=== PATIENT | male | born 1970 | race Caucasian/White ===

== ENCOUNTER 2017-01-12 23:29 | Emergency (ER) | payer OTHER ==
[~2017-01-12] VITALS: Ht 188 cm; Wt 87.0 kg
[2017-01-12 23:44] VITALS: BP 121/71; PULSE 106; RESP 18; TEMP 98.7; O2SAT 93
[2017-01-12] MEDS ORDERED: PAXI30TA7 PO (23:55)
[2017-01-12] MEDS ORDERED: LISI-515 PO (23:55)
--- NOTE | 2017-01-13 00:18 | PD ---
HPI Chief Complaint: Alcohol/Drug Intoxication Time Seen by Provider: 00:17 Travel History International Travel<30 days: No Contact w/Intl Traveler<30days: No Traveled to known affect area: No History of Present Illness HPI 46 year Old male arrives by EMS. He was drinking alcohol tonight. He drinks alcohol every single night. He was found asleep beside a [facility] and was therefore brought to the ER for evaluation. Here he has no complaint. He has no suicidal or homicidal ideation. Blood glucose upon arrival 259. Patient has a known history of diabetes. PFSH Past Medical History Depression: Yes Diabetes: Yes Patient Takes Glucophage: No Schizophrenia: Yes Tetanus Vaccination: Unknown Influenza Vaccination: No Social History Alcohol Use: Yes (ABUSE) Tobacco Use: Yes Substance Use: No Allergies-Medications (Allergen,Severity, Reaction): Coded Allergies: No Known Allergies (Unverified , 01/12/17) Reported Meds & Prescriptions Reported Meds & Active Scripts Active Reported Lisinopril 20 Mg Tab 20 Mg PO DAILY Paxil (Paroxetine HCl) 30 Mg Tab 40 Mg PO DAILY Review of Systems ROS Limitations: Intoxication Physical Exam Narrative GENERAL: 46 M, NAD, speaking full sentences SKIN: Warm and dry. HEAD: Atraumatic. Normocephalic. EYES: Pupils equal and round. No scleral icterus. No injection or drainage. ENT: No nasal bleeding or discharge. Mucous membranes pink and moist. NECK: Trachea midline. No JVD. CARDIOVASCULAR: Regular rate and rhythm. RESPIRATORY: No accessory muscle use. Clear to auscultation. Breath sounds equal bilaterally. GASTROINTESTINAL: Abdomen soft, non-tender, nondistended. Hepatic and splenic margins not palpable. MUSCULOSKELETAL: Extremities without clubbing, cyanosis, or edema. No obvious deformities. NEUROLOGICAL: Awake and alert. No obvious cranial nerve deficits. Motor grossly within normal limits. Five out of 5 muscle strength in the arms and legs. Normal speech. PSYCHIATRIC: EtOH on breath. No SI/HI. Data Data Last Documented VS Vital Signs Date Time Temp Pulse Resp B/P Pulse Ox O2 Delivery O2 Flow Rate FiO2 01/12/17 23:47 Room Air 01/12/17 23:44 98.7 106 18 121/71 93 VS reviewed [facility] Medical Decision Making Medical Screen Exam Complete: Yes Emergency Medical Condition: Yes Medical Record Reviewed: Yes Differential Diagnosis Alcohol intoxication, alcoholism, hyperglycemia Narrative Course The patient has been verbally abusive towards the staff. Although intoxicated he has a steady gait and is AOx3. Keeping him here against his will while he is able bodied and sufficiently clinically sober for discharge is considered unnecessary and he'll therefore be discharged. Diagnosis Primary Impression: Alcohol intoxication Qualified Code: F10.920 - Alcoholic intoxication without complication Additional Impression: Hyperglycemia Additional Instructions: You have a choice when it comes to health care, and we are glad that you chose [facility]. Hopefully, we have met your expectations on today's visit. You are welcome to return to [facility] at any time, as we are committed to meeting the health care needs of our community. Med/Other Pt SpecificInfo: No Change to Meds Disposition: 01 DISCHARGE HOME Condition: Stable Jack Villasenor MD Jan 13, 2017 00:18
== END 2017-01-13 01:16 | disposition home or self-care (01) ==
LOC: NEPD 23:29
DX: F10.120 Alcohol abuse with intoxication, uncomplicated (principal); E11.65 Type 2 diabetes mellitus with hyperglycemia
CPT/HCPCS: 99283

== ENCOUNTER 2017-01-24 12:27 | Inpatient (IN) | payer OTHER ==
[~2017-01-24] VITALS: Ht 188 cm; Wt 79.0 kg
[~2017-01-24 12:27] MED LIST: LISI-515 PO; PAXI30TA7 PO
[2017-01-24 12:33] VITALS: BP 147/76; PULSE 84; RESP 16; TEMP 98.2; O2SAT 98
--- NOTE | 2017-01-24 12:39 | PD ---
Physical Exam Date Seen by Provider: Jan 24, 2017 Time Seen by Provider: 12:36 Narrative Pt is a 46 year old male presenting via [facility] for evaluation of abdominal pain. Pt states he has a history of pancreatitis. He believes he is having a "bout of it now" pt is requesting to get out of pain fast. He reports drinking alcohol today and he states "that's what does it". Pt admits to drinking a few beers today. Pain appears more epigastric, pt pointing to epigastric area. Pt reports being a diabetic and states he lost his insulin and syringes. VSS, awaiting bed placement. Data Data Last Documented VS Vital Signs Date Time Temp Pulse Resp B/P (MAP) Pulse Ox O2 Delivery O2 Flow Rate FiO2 01/24/17 12:33 98.2 84 16 147/76 (99) 98 MDM Supervised Visit with KAJAL: Chanel Savage Jan 24, 2017 12:38
[2017-01-24] MEDS ORDERED: SODIUM CHLOR 0.9% 1000 ML INJ 1,000 ML IV SCH ×2 (12:56→15:05)
[2017-01-24] MEDS ORDERED: PROCHLORPERAZINE INJ 10 MG/2 ML VIAL IV PUSH ONE (13:00)
[2017-01-24] MEDS ORDERED: PANTOPRAZOLE SODIUM 40 MG VIAL IVP ONE (13:00)
[2017-01-24] MEDS ORDERED: HYDROmorphone HCL PF 1 MG/ML VIAL IVS ONE ×2 (13:00→14:45)
[2017-01-24] MEDS ORDERED: SODIUM CHLORIDE 0.9% FLUSH 10 ML FLUSH IV FLUSH PRN ×4 (13:00→15:15)
--- NOTE | 2017-01-24 13:31 | PD ---
HPI Chief Complaint: Abdominal Pain Time Seen by Provider: 12:42 Travel History International Travel<30 days: No Contact w/Intl Traveler<30days: No Traveled to known affect area: No History of Present Illness HPI This is a 46-year-old male with a history of alcohol abuse, pancreatitis, presents today with platelets of severe epigastric pain with associated nausea vomiting. The patient states he had 2 beers this morning. He states shortly thereafter exacerbated his epigastric pain. He reports the pain is severe. He reports it as a 9-10 out of 10. He denies any blood per emesis. He denies any blood per rectum. He was unable to tell me last time he had a episode of pancreatitis. [facility] Past Medical History Depression: Yes Diabetes: Yes Schizophrenia: Yes Social History Alcohol Use: Yes (ABUSE) Tobacco Use: Yes Substance Use: No Allergies-Medications (Allergen,Severity, Reaction): Coded Allergies: No Known Allergies (Unverified , 01/24/17) Reported Meds & Prescriptions Reported Meds & Active Scripts Active Reported Paxil (Paroxetine HCl) 30 Mg Tab 40 Mg PO DAILY Review of Systems Except as stated in HPI: all other systems reviewed are Neg General / Constitutional: No: Fever, Chills HENT: No: Headaches, Lightheadedness Cardiovascular: No: Chest Pain or Discomfort, Palpitations Respiratory: No: Cough, Shortness of Breath Gastrointestinal: Positive: Nausea, Vomiting, Abdominal Pain (epigastric), No: Hematemesis, Hematochezia Neurologic: No: Weakness, Dizziness Psychiatric: No: Anxiety, Disorder of Thought Physical Exam Narrative GENERAL: Well-nourished, well-developed patient, in no acute respiratory distress. SKIN: Focused skin assessment warm/dry. HEAD: Normocephalic last atraumatic. EYES: No scleral icterus. No injection or drainage. NECK: Supple, trachea midline. No JVD or lymphadenopathy. CARDIOVASCULAR: Regular rate and rhythm without murmurs, gallops, or rubs. RESPIRATORY: Breath sounds equal bilaterally. No accessory muscle use. GASTROINTESTINAL: Abdomen soft, nondistended. He has subjective epigastric tenderness to palpation. No rebound but voluntary guarding. MUSCULOSKELETAL: No cyanosis, or edema. NEUROLOGICAL: Awake and alert. Cranial nerves II through XII intact. Motor grossly within normal limits. Five out of 5 muscle strength in all muscle groups. Normal speech. Data Data Last Documented VS Vital Signs Date Time Temp Pulse Resp B/P (MAP) Pulse Ox O2 Delivery O2 Flow Rate FiO2 01/24/17 12:33 98.2 84 16 147/76 (99) 98 Orders Orders Complete Blood Count With Diff (01/24/17 12:56) Comprehensive Metabolic Panel (01/24/17 12:56) Lipase (01/24/17 12:56) Urinalysis - C+S If Indicated (01/24/17 12:56) Iv Access Insert/Monitor (01/24/17 12:56) Ecg Monitoring (01/24/17 12:56) Oximetry (01/24/17 12:56) Pantoprazole Inj (Protonix Inj) (01/24/17 13:00) Sodium Chlor 0.9% 1000 Ml Inj (Ns 1000 M (01/24/17 12:56) Sodium Chloride 0.9% Flush (Ns Flush) (01/24/17 13:00) Hydromorphone Pf Inj (Dilaudid Pf Inj) (01/24/17 13:00) Prochlorperazine Inj (Compazine Inj) (01/24/17 13:00) Hydromorphone Pf Inj (Dilaudid Pf Inj) (01/24/17 14:45) Sodium Chlor 0.9% 1000 Ml Inj (Ns 1000 M (01/24/17 14:45) Comprehensive Metabolic Panel (01/25/17 06:00) Free Thyroxine (T4) (01/25/17 06:00) Hemoglobin (Hgb) A1c (01/25/17 06:00) Magnesium (Mg) (01/25/17 06:00) Phosphorus (Po4) (01/25/17 06:00) Thyroid Stimulating Hormone (01/25/17 06:00) Complete Blood Count With Diff (01/25/17 06:00) Bedside Glucose MAGGIE.AC&HS&03 (01/24/17 15:04) Blood Glucose Goal (Criteria) (01/24/17 15:04) Hypoglycemia 70 Mg/Dl Or < (01/24/17 15:04) Notify Dr: Other (01/24/17 15:04) Dextrose 50% In Teri (Vial) Inj (D50w (Vi (01/24/17 15:15) Glucagon Inj (Glucagon Inj) (01/24/17 15:15) Consult Rn Cardiac Cath (01/24/17 ) Case Management Consult (01/24/17 ) Insulin Aspart Supplemtl Scale (Novolog (01/24/17 16:00) Admit To Inpatient (01/24/17 ) Code Status (01/24/17 15:05) Vital Signs (Adult) Q4H (01/24/17 15:05) Activity Oob Ad Lindsay (01/24/17 15:05) Intake + Output MAGGIE.QSHIFT (01/24/17 15:05) Diet Npo (01/24/17 Dinner) Sodium Chlor 0.9% 1000 Ml Inj (Ns 1000 M (01/24/17 15:05) Sodium Chloride 0.9% Flush (Ns Flush) (01/24/17 15:15) Sodium Chloride 0.9% Flush (Ns Flush) (01/24/17 21:00) Ketorolac Inj (Toradol Inj) (01/24/17 15:15) Morphine Inj (Morphine Inj) (01/24/17 15:15) Ondansetron Inj (Zofran Inj) (01/24/17 15:15) Promethazine Inj (Phenergan Inj) (01/24/17 15:15) Lipase (01/25/17 06:00) Calcium, Ionized (01/24/17 15:05) Triglycerides (01/24/17 15:05) C-Reactive Protein (Crp) (01/24/17 15:05) Hepatic Functional Panel (01/24/17 15:05) Resp Oxygen Jj C Titrat 1-4 L (01/24/17 ) Heparin Inj (Heparin Inj) (01/24/17 15:15) Scd Bilateral/Knee High MAGGIE.BID (01/24/17 15:05) Nestor Bilateral/Knee High MAGGIE.QSHIFT (01/24/17 15:15) Inpatient Certification (01/24/17 ) Amylase (01/25/17 06:00) Lipid Profile (01/24/17 15:05) Insulin Human Nph/R 70/30 Inj (Novolin 7 (01/25/17 09:00) Insulin Human Nph/R 70/30 Inj (Novolin 7 (01/24/17 21:00) (Nf) Paroxetine (Paxil) (01/25/17 09:00) Insulin Detemir Inj (Levemir Inj) (01/24/17 21:00) Admit Order (Ed Use Only) (01/24/17 15:09) Vital Signs (Adult) Q4H (01/24/17 15:10) Surtass Analyst / Telemetry .CONTINUOUS (01/24/17 15:10) Sodium Chloride 0.9% Flush (Ns Flush) (01/24/17 15:15) Sodium Chloride 0.9% Flush (Ns Flush) (01/24/17 21:00) Ondansetron Inj (Zofran Inj) (01/24/17 15:15) Prochlorperazine Supp (Compazine Supp) (01/24/17 15:15) Resp Oxygen Jj C Titrat 1-4 L (01/24/17 ) Pt Request For Service (01/24/17 15:10) Ot Request For Service (01/24/17 15:10) Acetaminophen (Tylenol) (01/24/17 15:15) Oxycodone-Acetamin 5-325 Mg (Percocet (01/24/17 15:15) Oxycodone-Acetamin 10-325 Mg (Percocet 1 (01/24/17 15:15) Naloxone Inj (Narcan Inj) (01/24/17 15:15) Docusate Sodium-Senna (Sachi-Colace) (01/24/17 21:00) Magnesium Hydroxide Liq (Milk Of Magnesi (01/24/17 15:15) Sennosides (Senokot) (01/24/17 15:15) Bisacodyl Supp (Dulcolax Supp) (01/24/17 15:15) Lactulose Liq (Lactulose Liq) (01/24/17 15:15) Flumazenil Inj (Romazicon Inj) (01/24/17 15:15) Lorazepam (Ativan) (01/24/17 15:15) Lorazepam Inj (Ativan Inj) (01/24/17 15:15) Lorazepam (Ativan) (01/24/17 15:15) Lorazepam Inj (Ativan Inj) (01/24/17 15:15) Lorazepam Inj (Ativan Inj) (01/24/17 15:15) Lorazepam Inj (Ativan Inj) (01/24/17 15:15) Neuro Checks Q4H (01/24/17 15:10) Alcohol Withdrawal Asmt-Ciwa Q4HX18 (01/24/17 15:10) ^ Seizure Precautions (01/24/17 15:10) Sodium Chloride 0.9% Flush (Ns Flush) (01/24/17 15:15) Sodium Chloride 0.9% Flush (Ns Flush) (01/24/17 21:00) Folic Acid (Folate) (01/25/17 09:00) Thiamine (Vit B1) (Vitamin B1) (01/25/17 09:00) Multivitamins-Minerals Therap (Theragran (01/25/17 09:00) Pantoprazole (Protonix) (01/25/17 09:00) Clonidine (Catapres) (01/24/17 15:15) Magnesium (Mg) (01/24/17 15:10) Phosphorus (Po4) (01/24/17 15:10) Alcohol (Ethanol) (01/24/17 15:10) Consult Cm-Etoh Abuse Dc Plan (01/24/17 ) Labs Laboratory Tests Test 01/24/17 13:10 01/24/17 13:30 White Blood Count 10.8 TH/MM3 Red Blood Count 4.87 MIL/MM3 Hemoglobin 16.3 GM/DL Hematocrit 47.2 % Mean Corpuscular Volume 96.8 FL Mean Corpuscular Hemoglobin 33.5 PG Mean Corpuscular Hemoglobin Concent 34.6 % Red Cell Distribution Width 14.5 % Platelet Count 244 TH/MM3 Mean Platelet Volume 8.5 FL Neutrophils (%) (Auto) 71.1 % Lymphocytes (%) (Auto) 22.3 % Monocytes (%) (Auto) 4.9 % Eosinophils (%) (Auto) 1.0 % Basophils (%) (Auto) 0.7 % Neutrophils # (Auto) 7.6 TH/MM3 Lymphocytes # (Auto) 2.4 TH/MM3 Monocytes # (Auto) 0.5 TH/MM3 Eosinophils # (Auto) 0.1 TH/MM3 Basophils # (Auto) 0.1 TH/MM3 CBC Comment DIFF FINAL Differential Comment Blood Urea Nitrogen 11 MG/DL Creatinine 0.82 MG/DL Random Glucose 315 MG/DL Total Protein 7.6 GM/DL Albumin 4.1 GM/DL Calcium Level 9.1 MG/DL Alkaline Phosphatase 105 U/L Aspartate Amino Transf (AST/SGOT) 66 U/L Alanine Aminotransferase (ALT/SGPT) 98 U/L Total Bilirubin 0.5 MG/DL Sodium Level 135 MEQ/L Potassium Level 4.0 MEQ/L Chloride Level 98 MEQ/L Carbon Dioxide Level 18.8 MEQ/L Anion Gap 18 MEQ/L Lipase 2847 U/L Urine Color LIGHT-YELLOW Urine Turbidity CLEAR Urine pH 6.0 Urine Specific [place] 1.030 Urine Protein NEG mg/dL Urine Glucose (UA) 1000 mg/dL Urine Ketones 40 mg/dL Urine Occult Blood NEG Urine Nitrite NEG Urine Bilirubin NEG Urine Urobilinogen LESS THAN 2.0 MG/DL Urine Leukocyte Esterase NEG Urine WBC 1 /hpf Microscopic Urinalysis Comment CULT NOT INDICATED MDM Medical Decision Making Medical Screen Exam Complete: Yes Emergency Medical Condition: Yes Differential Diagnosis Recurrent pancreatitis versus cholecystitis versus peptic ulcer disease Narrative Course 46-year-old gentleman with history of alcohol abuse, diabetes mellitus, presents today with complaint of epigastric pain with associated nausea vomiting. The patient has had previous admission for alcohol intoxication. He reports she's had previous pancreatitis in the past was well. The patient's blood sugar is over 300. His lipase is 2800. He's been given I V fluids. Patient is complaining of thirst. Case was discussed with Dr. Matthew, [facility], who is agreeable to the admission. Diagnosis Primary Impression: Acute pancreatitis Additional Impressions: Hyperglycemia Insulin dependent diabetes mellitus Admitting Information Admitting Physician Requests: Admit Rikki Dunaway MD Jan 24, 2017 13:31
[2017-01-24] MEDS ORDERED: NOVO7030P2 SQ ×2 (13:32)
[2017-01-24 13:33] LABS: AUTOMATED NEUTROPHIL # 7.6 TH/MM3 (1.8-7.7); BASOPHIL # 0.1 TH/MM3 (0-0.2); BASOPHIL % 0.7 % (0.0-2.0); EOSINOPHIL # 0.1 TH/MM3 (0-0.4); HEMATOCRIT 47.2 % (39.0-51.0); HEMO FLAGS DIFF FINAL; LYMPH % 22.3 % (9.0-44.0); LYMPHOCYTE # 2.4 TH/MM3 (1.0-4.8); MEAN CELL VOLUME 96.8 FL (80.0-100.0); MEAN CORPUSCULAR HEMOGLOBIN 33.5 PG (27.0-34.0); MEAN CORPUSCULAR HGB CONC 34.6 % (32.0-36.0); MONO % 4.9 % (0.0-8.0); NEUT % 71.1 % (16.0-70.0); PLATELET COUNT 244 TH/MM3 (150-450); RED BLOOD COUNT 4.87 MIL/MM3 (4.50-5.90); RED CELL DISTRIBUTION WIDTH 14.5 % (11.6-17.2); WHITE BLOOD COUNT 10.8 TH/MM3 (4.0-11.0)
[2017-01-24 13:48] LABS: ALT (GPT) 98 U/L (12-78); ANION GAP 18 MEQ/L (5-15); BICARBONATE 18.8 MEQ/L (21.0-32.0); BLOOD UREA NITROGEN 11 MG/DL (7-18); CHLORIDE 98 MEQ/L (98-107); SODIUM (NA) 135 MEQ/L (136-145)
[2017-01-24 13:55] LABS: ALKALINE PHOSPHATASE 105 U/L (45-117); AST (GOT) 66 U/L (15-37); TOTAL BILIRUBIN ADULT 0.5 MG/DL (0.2-1.0)
[2017-01-24 13:59] LABS: BLOOD, URINE NEG (NEG); GLUCOSE,URINE 1000 mg/dL (NEG); KETONE, URINE 40 mg/dL (NEG); NITRITE,URINE NEG (NEG); URINE COLOR LIGHT-YELLOW (YELLW/STRAW)
[2017-01-24 14:01] LABS: COMMENT (UR) CULT NOT INDICATED; CULTURE IF INDICATED CULT NOT INDICATED
[2017-01-24] MEDS ORDERED: SODIUM CHLOR 0.9% 1000 ML INJ 1,000 ML IV ONE (14:45)
[2017-01-24] MEDS ORDERED: SENNOSIDES 8.6 MG TAB PO PRN (15:15)
[2017-01-24] MEDS ORDERED: PROCHLORPERAZINE 25 MG SUPP RECTAL PRN (15:15)
[2017-01-24] MEDS ORDERED: DEXTROSE 50% IN WATER 50 ML VIAL(D50) IV PRN (15:15)
[2017-01-24] MEDS ORDERED: LACTULOSE SYRUP 20 GM/30 ML CUP PO PRN (15:15)
[2017-01-24] MEDS ORDERED: MAGNESIUM HYDROXIDE SUSP 30 ML CUP PO PRN (15:15)
[2017-01-24] MEDS ORDERED: BISACODYL 10 MG SUPP RECTAL PRN (15:15)
[2017-01-24] MEDS ORDERED: MORPHINE SULFATE 8 MG/ML INJ IV PUSH PRN (15:15)
[2017-01-24] MEDS ORDERED: oxyCODONE/ACETAMINOPHEN 10 MG/325 MG TAB PO PRN (15:15)
[2017-01-24] MEDS ORDERED: oxyCODONE/ACETAMINOPHEN 5 MG/325 MG TAB PO PRN (15:15)
[2017-01-24] MEDS ORDERED: ONDANSETRON HCL 4 MG/2 ML VIAL IVP PRN (15:15)
[2017-01-24] MEDS ORDERED: LORazepam 1 MG TAB PO PRN (15:15)
[2017-01-24] MEDS ORDERED: GLUCAGON 1 MG/ML VIAL OTHER PRN (15:15)
[2017-01-24] MEDS ORDERED: LORazepam 2 MG TAB PO PRN (15:15)
[2017-01-24] MEDS ORDERED: PROMETHAZINE INJ 25 MG/ML VIAL IM PRN (15:15)
[2017-01-24] MEDS ORDERED: KETOROLAC TROMETHAMINE 30 MG/ML (IVP) VIAL IVP PRN (15:15)
[2017-01-24] MEDS ORDERED: LORazepam 2 MG/ML VIAL IV PUSH PRN ×4 (15:15)
[2017-01-24] MEDS ORDERED: NALOXONE HCL 0.4 MG/ML AMP IV PRN (15:15)
[2017-01-24] MEDS ORDERED: FLUMAZENIL 0.5 MG/5 ML VIAL IV PUSH PRN (15:15)
[2017-01-24] MEDS ORDERED: ACETAMINOPHEN 325 MG TAB PO PRN (15:15)
[2017-01-24] MEDS ORDERED: ONDANSETRON HCL 4 MG/2 ML VIAL IV PRN (15:15)
[2017-01-24] MEDS ORDERED: cloNIDine HCL 0.1 MG TAB PO PRN (15:15)
--- NOTE | 2017-01-24 15:26 | HHI.HP ---
[facility] Service [facility] Primary Care Physician No Primary Care Physician Admission Diagnosis acute pancreatitis, hypergycemia, insulin dependent diabetes mellitu Diagnoses: (1) Hyperglycemia Diagnosis: Principal (2) Insulin dependent diabetes mellitus Diagnosis: Secondary (3) Acute pancreatitis Diagnosis: Principal (4) Alcohol intoxication Diagnosis: Secondary (5) ETOH abuse Diagnosis: Principal (6) Noncompliance Diagnosis: Principal Chief Complaint: ABDOMINAL PAIN Travel History International Travel<30 Days: No Contact w/Intl Traveler <30 Da: No Traveled to Known Affected Are: No History of Present Illness This is a 46-year-old male with a history of alcohol abuse, pancreatitis, presents today with complaint of severe epigastric pain with associated nausea and vomiting. The patient states he had 2 beers this morning. He states shortly thereafter exacerbated his epigastric pain. He reports the pain is severe. He reports it as a 9-10 out of 10. He denies any blood per emesis. He denies any blood per rectum. He was unable to tell me last time he had a episode of pancreatitis. Patient states he drinks too much alcohol have told him that he should never do that again! Review of Systems Constitutional: COMPLAINS OF: Change in appetite, DENIES: Fatigue, Fever, Weight gain, Weight loss, Chills, Dizziness Endocrine: DENIES: Heat/cold intolerance, Polydipsia, Polyuria, Polyphagia Eyes: DENIES: Blurred vision, Diplopia, Eye inflammation, Eye pain Ears, nose, mouth, throat: DENIES: Tinnitus, Hearing loss, Vertigo, Nasal discharge Respiratory: DENIES: Apneas, Cough, Snoring, Wheezing, Hemoptysis Cardiovascular: DENIES: Chest pain, Palpitations, Syncope, Dyspnea on Exertion Gastrointestinal: COMPLAINS OF: Abdominal pain, Diarrhea, Nausea, Anorexia, DENIES: Bloody stools, Constipation Genitourinary: DENIES: Sexual dysfunction, Urinary frequency Musculoskeletal: DENIES: Joint pain, Muscle aches, Stiffness Integumentary: DENIES: Abnormal pigmentation, Nail changes Hematologic/lymphatic: DENIES: Bruising, Lymphadenopathy Immunologic/allergic: DENIES: Eczema, Urticaria Neurologic: DENIES: Abnormal gait, Headache, Localized weakness, Paresthesias, Seizures, Tremor, Poor Balance Psychiatric: COMPLAINS OF: Anxiety, Depression, DENIES: Confusion, Mood changes , Hallucinations, Agitation, Homicidal Ideation Past Family Social History Past Medical History Depression Diabetes Schizophrenia Noncompliance Past Surgical History Denies any surgical history Reported Medications Reported Meds & Active Scripts Active Reported Paxil (Paroxetine HCl) 30 Mg Tab 40 Mg PO DAILY Allergies: Coded Allergies: No Known Allergies (Unverified , 01/24/17) Active Ordered Medications Current Medications Pantoprazole Sodium (Protonix Inj) 40 mg ONCE ONCE IVP Last administered on 13:25; Start 01/24/17 at 13:00; Stop 01/24/17 at 13:01; Status DC Sodium Chloride 1,000 ml @ 1,000 mls/hr Q1H IV Last administered on 01/24/17 13:24; Start 01/24/17 at 12:56; Stop 01/24/17 at 13:55; Status DC Sodium Chloride (NS Flush) 2 ml UNSCH PRN IV FLUSH FLUSH AFTER USING IV ACCESS Last administered on 01/24/17 13:26; Start 01/24/17 at 13:00 Hydromorphone HCl (Dilaudid Pf Inj) 1 mg ONCE ONCE IVS Last administered on 13:26; Start 01/24/17 at 13:00; Stop 01/24/17 at 13:01; Status DC Prochlorperazine Edisylate (Compazine Inj) 10 mg ONCE ONCE IV PUSH Last administered on 01/24/17 13:25; Start 01/24/17 at 13:00; Stop 01/24/17 at 13:01 ; Status DC Hydromorphone HCl (Dilaudid Pf Inj) 1 mg ONCE ONCE IVS ; Start 01/24/17 at 14: 45; Stop 01/24/17 at 14:46; Status DC Sodium Chloride 1,000 ml @ 999 mls/hr BOLUS ONCE IV ; Start 01/24/17 at 14:45 ; Stop 01/24/17 at 15:45 Dextrose (D50w (Vial) Inj) 50 ml UNSCH PRN IV HYPOGLYCEMIA-SEE COMMENTS; Start 01/24/17 at 15:15; Status UNV Glucagon (Glucagon Inj) 1 mg UNSCH PRN OTHER HYPOGLYCEMIA-SEE COMMENTS; Start 01/24/17 at 15:15; Status UNV Insulin Aspart (NovoLOG SUPPLEMENTAL SCALE) 1 ACHS SLIDING SCALE SQ ; Start at 16:00; Status UNV Sodium Chloride 1,000 ml @ 125 mls/hr Q8H IV ; Start 01/24/17 at 15:05; Status UNV Sodium Chloride (NS Flush) 2 ml UNSCH PRN IV FLUSH FLUSH AFTER USING IV ACCESS ; Start 01/24/17 at 15:15; Status UNV Sodium Chloride (NS Flush) 2 ml BID IV FLUSH ; Start 01/24/17 at 21:00; Status UNV Ketorolac Tromethamine (Toradol Inj) 30 mg Q6H PRN IVP PAIN SCALE 1 TO 10; Start 01/24/17 at 15:15; Status UNV Morphine Sulfate (Morphine Inj) 5 mg Q3H PRN IV PUSH PAIN SCALE 1 TO 10; Start 01/24/17 at 15:15; Status UNV Ondansetron HCl (Zofran Inj) 4 mg Q6H PRN IV NAUSEA OR VOMITING; Start at 15:15; Status UNV Promethazine HCl (Phenergan Inj) 25 mg Q6H PRN IM NAUSEA OR VOMITING; Start at 15:15; Status UNV Heparin Sodium (Porcine) (Heparin Inj) 5,000 units Q8H SQ ; Start 01/24/17 at 15 :15; Status UNV Insulin Human Isoph/Insulin Regular (NovoLIN 70/30 INJ) 15 units DAILY SQ ; Start 01/25/17 at 09:00; Status UNV Insulin Human Isoph/Insulin Regular (NovoLIN 70/30 INJ) 20 units HS SQ ; Start 01/24/17 at 21:00; Status UNV Non-Formulary Medication 40 mg DAILY PO ; Start 01/25/17 at 09:00; Status UNV Insulin Detemir (Levemir Inj) 10 units HS SQ ; Start 01/24/17 at 21:00; Status UNV Family History Tobacco and alcohol abuse Social History Drinks too much alcohol. And smokes too much cigarettes Physical Exam Vital Signs Vital Signs Date Time Temp Pulse Resp B/P (MAP) Pulse Ox O2 Delivery O2 Flow Rate FiO2 01/24/17 12:33 98.2 84 16 147/76 98 Physical Exam GENERAL: This is a well-nourished, well-developed patient, in mild to moderate distress. SKIN: No rashes, ecchymoses or lesions. Cool and dry. HEAD: Atraumatic. Normocephalic. No temporal or scalp tenderness. EYES: Pupils equal round and reactive. Extraocular motions intact. No scleral icterus. No injection or drainage. ENT: Nose without bleeding, purulent drainage or septal hematoma. Throat without erythema, tonsillar hypertrophy or exudate. Uvula midline. Airway patent. Tongue is midline NECK: Trachea midline. No JVD or lymphadenopathy. Supple, nontender, no meningeal signs. CARDIOVASCULAR: Regular rate and rhythm without murmurs, gallops, or rubs. S1- S2 no S3 or S4 no heave or thrill or rub or gallop RESPIRATORY: Clear to auscultation. Breath sounds equal bilaterally. No wheezes , rales, or rhonchi. Scattered rhonchi coarse breath sounds GASTROINTESTINAL: Abdomen soft, non-tender, nondistended. No hepato-splenomegaly , or palpable masses. No guarding. Diffuse abdominal pain especially midepigastric MUSCULOSKELETAL: Extremities without clubbing, cyanosis, or edema. No joint tenderness, effusion, or edema noted. No calf tenderness. Negative Homans sign bilaterally. NEUROLOGICAL: Awake and alert. Cranial nerves II through XII intact. Motor and sensory grossly within normal limits. Five out of 5 muscle strength in all muscle groups. Normal speech. Insight and judgment are poor mood and behavior are somewhat appropriate Laboratory Laboratory Tests Test 01/24/17 13:10 01/24/17 13:30 White Blood Count 10.8 Red Blood Count 4.87 Hemoglobin 16.3 Hematocrit 47.2 Mean Corpuscular Volume 96.8 Mean Corpuscular Hemoglobin 33.5 Mean Corpuscular Hemoglobin Concent 34.6 Red Cell Distribution Width 14.5 Platelet Count 244 Mean Platelet Volume 8.5 Neutrophils (%) (Auto) 71.1 Lymphocytes (%) (Auto) 22.3 Monocytes (%) (Auto) 4.9 Eosinophils (%) (Auto) 1.0 Basophils (%) (Auto) 0.7 Neutrophils # (Auto) 7.6 Lymphocytes # (Auto) 2.4 Monocytes # (Auto) 0.5 Eosinophils # (Auto) 0.1 Basophils # (Auto) 0.1 CBC Comment DIFF FINAL Differential Comment Blood Urea Nitrogen 11 Creatinine 0.82 Random Glucose 315 Total Protein 7.6 Albumin 4.1 Calcium Level 9.1 Alkaline Phosphatase 105 Aspartate Amino Transf (AST/SGOT) 66 Alanine Aminotransferase (ALT/SGPT) 98 Total Bilirubin 0.5 Sodium Level 135 Potassium Level 4.0 Chloride Level 98 Carbon Dioxide Level 18.8 Anion Gap 18 Lipase 2847 Urine Color LIGHT-YELLOW Urine Turbidity CLEAR Urine pH 6.0 Urine Specific [place] 1.030 Urine Protein NEG Urine Glucose (UA) 1000 Urine Ketones 40 Urine Occult Blood NEG Urine Nitrite NEG Urine Bilirubin NEG Urine Urobilinogen LESS THAN 2.0 Urine Leukocyte Esterase NEG Urine WBC 1 Microscopic Urinalysis Comment CULT NOT INDICATED Result Diagram: 01/24/17 1310 01/24/17 1310 Caprini VTE Risk Assessment Caprini VTE Risk Assessment: Mod/High Risk (score >= 2) Caprini Risk Assessment Model Point Value = 1 Point Value = 2 Point Value = 3 Point Value = 5 Age 41-60 Minor surgery BMI > 25 kg/m2 Swollen legs Varicose veins or History of unexplained or recurrent spontaneous Oral contraceptives or hormone replacement Sepsis (< 1 month) Serious lung disease, including pneumonia (< 1 month) Abnormal pulmonary function Acute myocardial infarction Congestive heart failure (< 1 month) History of inflammatory bowel disease Medical patient at bed rest Age 61-74 Arthroscopic surgery Major open surgery (> 45 min) Laparoscopic surgery (> 45 min) Malignancy Confined to bed (> 72 hours) Immobilizing plaster cast Central venous access Age >= 75 History of VTE Family history of VTE Factor V Leiden Prothrombin [id number] Lupus anticoagulant Anticardiolipin antibodies Elevated serum homocysteine Heparin-induced thrombocytopenia Other congenital or acquired thrombophilia Stroke (< 1 month) Elective arthroplasty Hip, pelvis, or leg fracture Acute spinal cord injury (< 1 month) Prophylaxis Regimen Total Risk Factor Score Risk Level Prophylaxis Regimen 0-1 Low Early ambulation 2 Moderate Order ONE of the following: *Sequential Compression Device (SCD) *Heparin 5000 units SQ BID 3-4 Higher Order ONE of the following medications: *Heparin 5000 units SQ TID *Enoxaparin/Lovenox 40 mg SQ daily (WT < 150 kg, CrCl > 30 mL/min) *Enoxaparin/Lovenox 30 mg SQ daily (WT < 150 kg, CrCl > 10-29 mL/min) *Enoxaparin/Lovenox 30 mg SQ BID (WT < 150 kg, CrCl > 30 mL/min) AND/OR *Sequential Compression Device (SCD) 5 or more Highest Order ONE of the following medications: *Heparin 5000 units SQ TID (Preferred with Epidurals) *Enoxaparin/Lovenox 40 mg SQ daily (WT < 150 kg, CrCl > 30 mL/min) *Enoxaparin/Lovenox 30 mg SQ daily (WT < 150 kg, CrCl > 10-29 mL/min) *Enoxaparin/Lovenox 30 mg SQ BID (WT < 150 kg, CrCl > 30 mL/min) AND *Sequential Compression Device (SCD) Assessment and Plan Problem List: (1) ETOH abuse ICD Code: F10.10 - Alcohol abuse, uncomplicated Status: Acute (2) Hyperglycemia ICD Code: R73.9 - Hyperglycemia, unspecified Status: Acute (3) Insulin dependent diabetes mellitus ICD Code: E11.9 - Type 2 diabetes mellitus without complications; Z79.4 - intermediate card tender (current) use of insulin Status: Acute (4) Acute pancreatitis ICD Code: K85.90 - Acute pancreatitis without necrosis or infection, unspecified Status: Acute (5) Alcohol intoxication ICD Code: F10.929 - Alcohol use, unspecified with intoxication, unspecified Status: Acute (6) Noncompliance ICD Code: Z91.19 - Patient's noncompliance with other medical treatment and regimen Assessment and Plan Abdominal pain with acute pancreatitis due to alcohol ingestion Keep nothing by mouth Continue on IV fluids Accu-Cheks before meals and at bedtime with sliding scale coverage and Levemir Diabetes mellitus suspect secondary to pancreatitis continue on Levemir and sliding scale coverage Psychiatric problems continue on his SSRI Case management for help with discharge processes Alcohol abuse continue onCIWA protocol with multivitamin and thiamine and folic acid Continue to ambulate Continue on heparin or Lovenox Continue on PPI Continue on pain control with IV pain medications keep him nothing by mouth today A.m. labs Patient needs to never have an alcoholic or tobacco product ever again Have reiterated this Code Status Full code Discussed Condition With Discussed with patient and RN and the ER physician Physician Certification 2 Midnight Certification Type: Admission for Inpatient Services Order for Inpatient Services The services are ordered in accordance with Medicare regulations or non- Medicare payer requirements, as applicable. In the case of services not specified as inpatient-only, they are appropriately provided as inpatient services in accordance with the 2-midnight benchmark. Estimated LOS (days): 2 2 days is the estimated time the patient will need to remain in the hospital, assuming treatment plan goals are met and no additional complications. Post-Hospital Plan: Not yet determined Phil Matthew DO Jan 24, 2017 15:26
[2017-01-24 15:55] LABS: ALT (GPT) 100 U/L (12-78); AST (GOT) 64 U/L (15-37); MAGNESIUM 2.1 MG/DL (1.5-2.5)
[2017-01-24 15:59] LABS: ALKALINE PHOSPHATASE 103 U/L (45-117); HDL CHOLESTEROL 99.8 MG/DL (40.0-60.0); INDIRECT BILIRUBIN 0.2 MG/DL (0.0-0.8); LDL CHOLESTEROL 111 MG/DL (0-99); TOTAL BILIRUBIN ADULT 0.4 MG/DL (0.2-1.0)
[2017-01-24] MEDS ORDERED: INSULIN ASPART SUPPLEMENTAL SCALE SQ SCH (16:00)
[2017-01-24 16:12] LABS: ALCOHOL 209 MG/DL (0-5)
[2017-01-24] MEDS ORDERED: INSULIN HUMAN NPH/R 70/30 1,000 UNITS/10 ML VIAL SQ SCH (21:00)
[2017-01-24] MEDS ORDERED: SODIUM CHLORIDE 0.9% FLUSH 10 ML FLUSH IV FLUSH SCH ×3 (21:00)
[2017-01-24] MEDS ORDERED: INSULIN DETEMIR 100 UNITS/ML VIAL SQ SCH (21:00)
[2017-01-24] MEDS ORDERED: DOCUSATE SODIUM 50 MG/SENNA 8.6 MG TAB PO SCH (21:00)
[2017-01-24] MEDS ORDERED: HEPARIN SODIUM - SQ 10,000 UNITS/ML VIAL SQ SCH (22:00)
[2017-01-25] MEDS ORDERED: FOLIC ACID 1 MG TAB PO SCH (09:00)
[2017-01-25] MEDS ORDERED: PANTOPRAZOLE SOD 40 MG DELAYED RELEASE TAB PO SCH (09:00)
[2017-01-25] MEDS ORDERED: INSULIN HUMAN NPH/R 70/30 1,000 UNITS/10 ML VIAL SQ SCH (09:00)
[2017-01-25] MEDS ORDERED: THIAMINE HCL 100 MG TAB PO SCH (09:00)
[2017-01-25] MEDS ORDERED: PARoxetine HCL 20 MG TAB PO SCH (09:00)
[2017-01-25] MEDS ORDERED: MULTIVITAMINS/MINERALS THERAPEUTIC TAB PO SCH (09:00)
== END 2017-01-24 16:22 | disposition left against medical advice (07) | DRG 440 ==
LOC: NEPE 12:27 → NEDA 15:14
PROVIDERS: ADMIT Hospitalist; ATTEND Hospitalist
DX: K85.20 Alcohol induced acute pancreatitis without necrosis or infection (principal); E11.65 Type 2 diabetes mellitus with hyperglycemia; F10.120 Alcohol abuse with intoxication, uncomplicated; Y90.7 Blood alcohol level of 200-239 mg/100 ml; F17.210 Nicotine dependence, cigarettes, uncomplicated; F32.9 Major depressive disorder, single episode, unspecified; F20.9 Schizophrenia, unspecified; Z79.4 Long term (current) use of insulin; Z91.19 Patient's noncompliance with other medical treatment and regimen
CPT/HCPCS: 80053; 80061; 80076; 80307; 81001; 83690; 83735; 84100; 85025; 86140; 96374; 96375; C9113; J0780; J1170; J7030

== ENCOUNTER 2017-01-24 18:02 | Observation (INO) | payer OTHER ==
[~2017-01-24 18:02] MED LIST changes: +NOVO7030P2 SQ
[2017-01-24 18:05] VITALS: BP 188/91; PULSE 88; RESP 16; TEMP 98.4; O2SAT 98
--- NOTE | 2017-01-24 19:53 | PD ---
HPI . pancreatitis Chief Complaint: GI Complaint Time Seen by Provider: 19:52 Travel History International Travel<30 days: No Contact w/Intl Traveler<30days: No Traveled to known affect area: No History of Present Illness HPI 46 yr old male who was here earlier in the day and dx with acute pancreatitis and admitted, but signed out AMA, now here for admission. He said he went home and had another beer and now has very severe pain. He says he needs to get better to get home to [place]. He still c/o epigastric abdominal pain with nausea. PFSH Past Medical History Depression: Yes Diabetes: Yes Diminished Hearing: No Schizophrenia: Yes Social History Alcohol Use: Yes (ABUSE) Tobacco Use: Yes Substance Use: No Allergies-Medications (Allergen,Severity, Reaction): Coded Allergies: No Known Allergies (Unverified , 01/24/17) Reported Meds & Prescriptions Reported Meds & Active Scripts Active Reported Paxil (Paroxetine HCl) 30 Mg Tab 40 Mg PO DAILY Review of Systems General / Constitutional: No: Fever Eyes: No: Visual changes HENT: No: Headaches Cardiovascular: No: Chest Pain or Discomfort Respiratory: No: Shortness of Breath Gastrointestinal: Positive: Nausea, Abdominal Pain Genitourinary: No: Dysuria Musculoskeletal: No: Pain Skin: No Rash Neurologic: No: Weakness Psychiatric: No: Depression Endocrine: No: Polydipsia Hematologic/Lymphatic: No: Easy Bruising Physical Exam Narrative GENERAL: AAO x3, in bed, appears uncomfortable SKIN: Warm and dry. HEAD: Atraumatic. Normocephalic. EYES: Pupils equal and round. No scleral icterus. No injection or drainage. ENT: No nasal bleeding or discharge. Mucous membranes pink and moist. NECK: Trachea midline. No JVD. CARDIOVASCULAR: Regular rate and rhythm. RESPIRATORY: No accessory muscle use. Clear to auscultation. Breath sounds equal bilaterally. GASTROINTESTINAL: Abdomen soft, + tenderness in the RUQ, no rebound or guarding MUSCULOSKELETAL: Extremities without clubbing, cyanosis, or edema. No obvious deformities. NEUROLOGICAL: Awake and alert. No obvious cranial nerve deficits. Motor grossly within normal limits. Five out of 5 muscle strength in the arms and legs. Normal speech. PSYCHIATRIC: Appropriate mood and affect; insight and judgment normal. Data Data Last Documented VS Vital Signs Date Time Temp Pulse Resp B/P (MAP) Pulse Ox O2 Delivery O2 Flow Rate FiO2 01/24/17 20:11 100 20 184/88 (120) 98 01/24/17 18:05 98.4 Orders Orders Morphine Inj (Morphine Inj) (01/24/17 20:15) Ondansetron Inj (Zofran Inj) (01/24/17 20:15) Iv Access Insert/Monitor (01/24/17 20:03) MDM Medical Decision Making Medical Screen Exam Complete: Yes Emergency Medical Condition: Yes Medical Record Reviewed: Yes Differential Diagnosis pancreatitis, alcohol abuse, PUD Narrative Course 46 yr old male here with acute pancreatitis. I have requested admission. Morphine and Zofran in ED. Requested a call from [facility] for admission. 2024: Discussed with Dr. Ponce. Patient admitted for observation for pain control. Patient in agreement with admission. Diagnosis Primary Impression: Pancreatitis Qualified Codes: K85.20 - Alcohol induced acute pancreatitis without necrosis or infection Admitting Information Admitting Physician Requests: Admit Condition: Stable Elba Swanson Jan 24, 2017 19:52
[2017-01-24 20:11] VITALS: BP 184/88; PULSE 100; RESP 20; O2SAT 98
[2017-01-24] MEDS ORDERED: MORPHINE SULFATE 4 MG/ML INJ IV PUSH ONE (20:15)
[2017-01-24] MEDS ORDERED: ONDANSETRON HCL 4 MG/2 ML VIAL IV PUSH ONE (20:15)
[2017-01-24] MEDS ORDERED: SODIUM CHLORIDE 0.9% FLUSH 10 ML FLUSH IV FLUSH PRN (20:30)
[2017-01-24] MEDS ORDERED: NALOXONE HCL 0.4 MG/ML AMP IV PRN (20:30)
[2017-01-24] MEDS ORDERED: ONDANSETRON HCL 4 MG/2 ML VIAL IVP PRN (20:30)
[2017-01-24] MEDS: SODIUM CHLOR 0.9% 1000 ML INJ 1,000 ML IV SCH (20:52)
[2017-01-24] MEDS: SODIUM CHLORIDE 0.9% FLUSH 10 ML FLUSH IV FLUSH SCH (20:55)
[2017-01-24 21:08] VITALS: BP 153/72; PULSE 97; RESP 18; O2SAT 99
[2017-01-24 21:45] VITALS: PULSE 90
[2017-01-24 21:54] VITALS: BP 165/77; PULSE 104; RESP 18; TEMP 97.9; O2SAT 98
[2017-01-24] MEDS: MORPHINE SULFATE 4 MG/ML INJ IV PUSH PRN (23:56)
[2017-01-25] VITALS (10 sets, daily range): BP systolic 164–187; BP diastolic 74–88; PULSE 78–104; RESP 18–20; TEMP 97.6–98.8; O2SAT 94–99
[2017-01-25] MEDS: MORPHINE SULFATE 4 MG/ML INJ IV PUSH PRN (03:19)
[2017-01-25] MEDS: SODIUM CHLOR 0.9% 1000 ML INJ 1,000 ML IV SCH ×2 (06:25→18:21)
--- NOTE | 2017-01-25 06:28 | HHI.HP ---
HPI Service [facility] Primary Care Physician Unknown Admission Diagnosis pancreatitis Diagnoses: Chief Complaint: abdominal pain Travel History International Travel<30 Days: No Contact w/Intl Traveler <30 Da: No Traveled to Known Affected Are: No History of Present Illness 46 y/o male with a history of alcohol abuse, pancreatitis, depression and Type 1 DM presented to the ED with complaints of epigastic pain, nausea and vomiting. Patient was admitted yesterday and left AMA to go home and have a beer. He states that was a bad mistake and his pain worsened. He states the pain is a sharp 10/10 pain to his epigastric region, with associated nausea and vomiting. He states the pain is worse when he vomits, and the morphine only lasts an hour. He states he drinks about 10 beers a day and plans on quitting, he also states he gets the shakes if he does not drink. He denies any chest pain , sob, fever or chills. Review of Systems Except as stated in HPI: all other systems reviewed are Neg Past Family Social History Past Medical History alcohol abuse pancreatitis depression Type 1 DM Past Surgical History Patient denies any surgical history Reported Medications Reported Meds & Active Scripts Active Reported Paxil (Paroxetine HCl) 30 Mg Tab 40 Mg PO DAILY Allergies: Coded Allergies: No Known Allergies (Unverified , 01/24/17) Active Ordered Medications Current Medications Medications (Trade) Dose Ordered Sig/Erika Route Start Time Stop Time Status Last Admin Sodium Chloride 1,000 ml @ 100 mls/hr Q10H IV 01/24/17 20:25 01/24/17 20:52 (NS Flush) 2 ml UNSCH PRN IV FLUSH 01/24/17 20:30 (NS Flush) 2 ml BID IV FLUSH 01/24/17 21:00 01/24/17 20:55 (Zofran Inj) 4 mg Q6H PRN IVP 01/24/17 20:30 01/25/17 02:23 (Narcan Inj) 0.4 mg UNSCH PRN IV 01/24/17 20:30 (Morphine Inj) 2 mg Q3H PRN IV PUSH 01/24/17 20:30 01/25/17 03:19 Family History Patient states he is adopted and does not know his family history Social History Tobacco use: 1 05/31 PPD Alcohol use: 10 beers a day Illicit drug use: Denies Physical Exam Vital Signs Vital Signs Date Time Temp Pulse Resp B/P (MAP) Pulse Ox O2 Delivery O2 Flow Rate FiO2 01/25/17 04:29 98.2 102 18 181/86 (117) 99 01/25/17 03:50 90 01/25/17 03:25 22 01/25/17 01:07 104 01/25/17 00:12 98.0 91 18 171/83 (112) 99 01/24/17 21:54 97.9 104 18 165/77 (106) 98 01/24/17 21:45 90 01/24/17 21:08 97 18 153/72 (99) 99 Room Air 01/24/17 20:11 100 20 184/88 (120) 98 01/24/17 18:05 98.4 88 16 188/91 (123) 98 Physical Exam GENERAL: This is a well-nourished, well-developed patient, in no apparent distress. SKIN: No rashes, ecchymoses or lesions. Cool and dry. HEAD: Atraumatic. Normocephalic. EYES: Pupils equal round and reactive. ENT: Nose without bleeding, purulent drainage or septal hematoma. Airway patent. NECK: Trachea midline. No JVD or lymphadenopathy. CARDIOVASCULAR: Regular rate and rhythm without murmurs, gallops, or rubs. RESPIRATORY: Clear to auscultation. Breath sounds equal bilaterally. No wheezes , rales, or rhonchi. GASTROINTESTINAL: Abdomen soft, epigastric tenderness, nondistended. MUSCULOSKELETAL: Extremities without clubbing, cyanosis, or edema. No joint tenderness, effusion, or edema noted. No calf tenderness. NEUROLOGICAL: Awake and alert. Motor and sensory grossly within normal limits. Normal speech. Caprini VTE Risk Assessment Caprini VTE Risk Assessment: No/Low Risk (score <= 1) Caprini Risk Assessment Model Point Value = 1 Point Value = 2 Point Value = 3 Point Value = 5 Age 41-60 Minor surgery BMI > 25 kg/m2 Swollen legs Varicose veins or History of unexplained or recurrent spontaneous Oral contraceptives or hormone replacement Sepsis (< 1 month) Serious lung disease, including pneumonia (< 1 month) Abnormal pulmonary function Acute myocardial infarction Congestive heart failure (< 1 month) History of inflammatory bowel disease Medical patient at bed rest Age 61-74 Arthroscopic surgery Major open surgery (> 45 min) Laparoscopic surgery (> 45 min) Malignancy Confined to bed (> 72 hours) Immobilizing plaster cast Central venous access Age >= 75 History of VTE Family history of VTE Factor V Leiden Prothrombin [id number] Lupus anticoagulant Anticardiolipin antibodies Elevated serum homocysteine Heparin-induced thrombocytopenia Other congenital or acquired thrombophilia Stroke (< 1 month) Elective arthroplasty Hip, pelvis, or leg fracture Acute spinal cord injury (< 1 month) Prophylaxis Regimen Total Risk Factor Score Risk Level Prophylaxis Regimen 0-1 Low Early ambulation 2 Moderate Order ONE of the following: *Sequential Compression Device (SCD) *Heparin 5000 units SQ BID 3-4 Higher Order ONE of the following medications: *Heparin 5000 units SQ TID *Enoxaparin/Lovenox 40 mg SQ daily (WT < 150 kg, CrCl > 30 mL/min) *Enoxaparin/Lovenox 30 mg SQ daily (WT < 150 kg, CrCl > 10-29 mL/min) *Enoxaparin/Lovenox 30 mg SQ BID (WT < 150 kg, CrCl > 30 mL/min) AND/OR *Sequential Compression Device (SCD) 5 or more Highest Order ONE of the following medications: *Heparin 5000 units SQ TID (Preferred with Epidurals) *Enoxaparin/Lovenox 40 mg SQ daily (WT < 150 kg, CrCl > 30 mL/min) *Enoxaparin/Lovenox 30 mg SQ daily (WT < 150 kg, CrCl > 10-29 mL/min) *Enoxaparin/Lovenox 30 mg SQ BID (WT < 150 kg, CrCl > 30 mL/min) AND *Sequential Compression Device (SCD) Assessment and Plan Problem List: (1) ETOH abuse ICD Code: F10.10 - Alcohol abuse, uncomplicated Status: Acute (2) Pancreatitis ICD Code: K85.90 - Acute pancreatitis without necrosis or infection, unspecified Status: Acute (3) Hyperglycemia ICD Code: R73.9 - Hyperglycemia, unspecified Status: Acute Assessment and Plan 46 y/o male with a history of alcohol abuse, pancreatitis, depression and Type 1 DM presented to the ED with complaints of epigastric pain, nausea and vomiting. Acute Pancreatitis, Lipase 2847, with associated nausea and vomiting -IVF for hydration -Pain management with IV Dilaudid -Clear liquids, advance diet as tolerated -Antiemetics as needed Alcohol abuse and Tobacco abuse, chronic -Encouraged to quit -CIWA protocol with thiamine and folate ordered -Seizure precautions Hyperglycemia, patient is a type 1 DM, likely elevated due to stress of vomiting , BS on yesterday's lab 315 -Accu checks ordered, if elevated will order SSI -Diabetic diet when able to eat -Labs pending DVT prophylaxis: SCDs GI prophylaxis: Protonix Discussed Condition With Patient and RN Problem Qualifiers (1) Pancreatitis: Qualified Codes: K85.20 - Alcohol induced acute pancreatitis without necrosis or infection Debby Gimenez Jan 25, 2017 06:28
[2017-01-25] MEDS ORDERED: HALOPERIDOL LACTATE 5 MG/ML AMP IM PRN (06:30)
[2017-01-25] MEDS ORDERED: FLUMAZENIL 0.5 MG/5 ML VIAL IV PUSH PRN (06:30)
[2017-01-25] MEDS ORDERED: LORazepam 2 MG/ML VIAL IV PUSH PRN ×4 (06:30)
[2017-01-25] MEDS: HYDROmorphone HCL PF 1 MG/ML VIAL IV PUSH PRN ×5 (06:56→21:33)
[2017-01-25 07:32] LABS: AUTOMATED NEUTROPHIL # 7.3 TH/MM3 (1.8-7.7); BASOPHIL % 0.2 % (0.0-2.0); HEMATOCRIT 43.9 % (39.0-51.0); HEMO FLAGS DIFF FINAL; LYMPH % 8.2 % (9.0-44.0); LYMPHOCYTE # 0.7 TH/MM3 (1.0-4.8); MEAN CELL VOLUME 97.9 FL (80.0-100.0); MEAN CORPUSCULAR HEMOGLOBIN 33.6 PG (27.0-34.0); MEAN CORPUSCULAR HGB CONC 34.4 % (32.0-36.0); MONO % 9.4 % (0.0-8.0); NEUT % 82.2 % (16.0-70.0); PLATELET COUNT 168 TH/MM3 (150-450); RED BLOOD COUNT 4.49 MIL/MM3 (4.50-5.90); RED CELL DISTRIBUTION WIDTH 14.5 % (11.6-17.2); WHITE BLOOD COUNT 8.9 TH/MM3 (4.0-11.0)
[2017-01-25 07:36] LABS: ANION GAP 20 MEQ/L (5-15); AST (GOT) 38 U/L (15-37); BICARBONATE 15.1 MEQ/L (21.0-32.0); BLOOD UREA NITROGEN 13 MG/DL (7-18); CHLORIDE 95 MEQ/L (98-107); GLOMERULAR FILTRATION RATE 133 ML/MIN (>89); POTASSIUM 4.5 MEQ/L (3.5-5.1); SODIUM (NA) 130 MEQ/L (136-145)
[2017-01-25 07:39] LABS: ALKALINE PHOSPHATASE 98 U/L (45-117); ALT (GPT) 80 U/L (12-78)
[2017-01-25] MEDS: SODIUM CHLORIDE 0.9% FLUSH 10 ML FLUSH IV FLUSH SCH ×2 (09:00→21:00)
[2017-01-25] MEDS: PANTOPRAZOLE SODIUM 40 MG VIAL IV PUSH SCH (09:15)
[2017-01-25] MEDS: THIAMINE INJ 100 MG in SODIUM CHLORIDE 0.9% INJ 100 ML IV SCH (09:16)
[2017-01-25] MEDS: PARoxetine HCL 20 MG TAB PO SCH (10:04)
--- NOTE | 2017-01-25 10:32 | HHI.PR ---
Subjective Remarks 46 y/o male with a history of alcohol abuse, pancreatitis, depression and Type 1 DM presented to the ED with complaints of epigastic pain, nausea and vomiting. Patient was admitted yesterday and left AMA to go home and have a beer. He states that was a bad mistake and his pain worsened. He states the pain is a sharp 10/10 pain to his epigastric region, with associated nausea and vomiting. He states the pain is worse when he vomits, and the morphine only lasts an hour. He states he drinks about 10 beers a day and plans on quitting, he also states he gets the shakes if he does not drink. He denies any chest pain , sob, fever or chills. 01-25 and came back to the hospital after leaving AGAINST MEDICAL ADVICE and having some beers. Then came back because he had worsening abdominal pain and nausea and vomiting She is now asking for more pain medications Continue to monitor leaving AGAINST MEDICAL ADVICE again Discussed with patient and RN Objective Vitals Vital Signs Date Time Temp Pulse Resp B/P (MAP) Pulse Ox O2 Delivery O2 Flow Rate FiO2 01/25/17 08:18 89 01/25/17 07:27 21 01/25/17 07:25 98.8 95 20 164/74 (104) 98 01/25/17 04:29 98.2 102 18 181/86 (117) 99 01/25/17 03:50 90 01/25/17 03:25 22 01/25/17 01:07 104 01/25/17 00:12 98.0 91 18 171/83 (112) 99 01/24/17 21:54 97.9 104 18 165/77 (106) 98 01/24/17 21:45 90 01/24/17 21:08 97 18 153/72 (99) 99 Room Air 01/24/17 20:11 100 20 184/88 (120) 98 01/24/17 18:05 98.4 88 16 188/91 (123) 98 Result Diagram: 01/25/17 0616 01/25/17 0616 Other Results Laboratory Tests Test 01/25/17 06:16 White Blood Count 8.9 TH/MM3 Red Blood Count 4.49 MIL/MM3 Hemoglobin 15.1 GM/DL Hematocrit 43.9 % Mean Corpuscular Volume 97.9 FL Mean Corpuscular Hemoglobin 33.6 PG Mean Corpuscular Hemoglobin Concent 34.4 % Red Cell Distribution Width 14.5 % Platelet Count 168 TH/MM3 Mean Platelet Volume 9.3 FL Neutrophils (%) (Auto) 82.2 % Lymphocytes (%) (Auto) 8.2 % Monocytes (%) (Auto) 9.4 % Eosinophils (%) (Auto) 0.0 % Basophils (%) (Auto) 0.2 % Neutrophils # (Auto) 7.3 TH/MM3 Lymphocytes # (Auto) 0.7 TH/MM3 Monocytes # (Auto) 0.8 TH/MM3 Eosinophils # (Auto) 0.0 TH/MM3 Basophils # (Auto) 0.0 TH/MM3 CBC Comment DIFF FINAL Differential Comment Blood Urea Nitrogen 13 MG/DL Creatinine 0.65 MG/DL Random Glucose 229 MG/DL Total Protein 7.3 GM/DL Albumin 3.9 GM/DL Calcium Level 8.3 MG/DL Alkaline Phosphatase 98 U/L Aspartate Amino Transf (AST/SGOT) 38 U/L Alanine Aminotransferase (ALT/SGPT) 80 U/L Total Bilirubin 1.0 MG/DL Sodium Level 130 MEQ/L Potassium Level 4.5 MEQ/L Chloride Level 95 MEQ/L Carbon Dioxide Level 15.1 MEQ/L Anion Gap 20 MEQ/L Estimat Glomerular Filtration Rate 133 ML/MIN Lipase 1198 U/L Objective Remarks GENERAL: This is a well-nourished, well-developed patient, in no apparent distress. SKIN: No rashes, ecchymoses or lesions. Cool and dry. HEAD: Atraumatic. Normocephalic. EYES: Pupils equal round and reactive. ENT: Nose without bleeding, purulent drainage or septal hematoma. Airway patent. NECK: Trachea midline. No JVD or lymphadenopathy. CARDIOVASCULAR: Regular rate and rhythm without murmurs, gallops, or rubs. RESPIRATORY: Clear to auscultation. Breath sounds equal bilaterally. No wheezes , rales, or rhonchi. GASTROINTESTINAL: Abdomen soft, epigastric tenderness, nondistended. MUSCULOSKELETAL: Extremities without clubbing, cyanosis, or edema. No joint tenderness, effusion, or edema noted. No calf tenderness. NEUROLOGICAL: Awake and alert. Motor and sensory grossly within normal limits. Normal speech. Medications and IVs Current Medications Morphine Sulfate (Morphine Inj) 4 mg ONCE ONCE IV PUSH Last administered on t 20:47; Start 01/24/17 at 20:15; Stop 01/24/17 at 20:16; Status DC Ondansetron HCl (Zofran Inj) 4 mg ONCE ONCE IV PUSH Last administered on 20:47; Start 01/24/17 at 20:15; Stop 01/24/17 at 20:16; Status DC Sodium Chloride 1,000 ml @ 100 mls/hr Q10H IV Last administered on 01/24/17 20:52; Start 01/24/17 at 20:25 Sodium Chloride (NS Flush) 2 ml UNSCH PRN IV FLUSH FLUSH AFTER USING IV ACCESS ; Start 01/24/17 at 20:30 Sodium Chloride (NS Flush) 2 ml BID IV FLUSH Last administered on 01/24/17 20: 55; Start 01/24/17 at 21:00 Ondansetron HCl (Zofran Inj) 4 mg Q6H PRN IVP NAUSEA OR VOMITING Last administered on 01/25/17 02:23; Start 01/24/17 at 20:30 Naloxone HCl (Narcan Inj) 0.4 mg UNSCH PRN IV SEE LABEL COMMENTS; Start at 20:30 Morphine Sulfate (Morphine Inj) 2 mg Q3H PRN IV PUSH pain >5 Last administered on 01/25/17 03:19; Start 01/24/17 at 20:30; Stop 01/25/17 at 06:16; Status DC Hydromorphone HCl (Dilaudid Pf Inj) 0.5 mg Q4H PRN IV PUSH PAIN >5 Last administered on 01/25/17 06:56; Start 01/25/17 at 06:15 Multivitamins 10 ml/Folic Acid 1 mg/Sodium Chloride 510.2 ml @ 125 mls/hr Q24H IV ; Start 01/25/17 at 07:00; Stop 01/30/17 at 06:59 Thiamine HCl 100 mg/Sodium Chloride 101 ml @ 100 mls/hr Q24H IV Last administered on 01/25/17 09:16; Start 01/25/17 at 07:00; Stop 01/28/17 at 06:59 Flumazenil (Romazicon Inj) 0.2 mg Q1M PRN IV PUSH SEE LABEL COMMENTS; Start at 06:30 Lorazepam (Ativan Inj) 1 mg Q4H PRN IV PUSH CIWA 8 - 10; Start 01/25/17 at 06: 30 Lorazepam (Ativan Inj) 2 mg Q2H PRN IV PUSH CIWA 11-14; Start 01/25/17 at 06:30 Lorazepam (Ativan Inj) 2 mg Q1H PRN IV PUSH CIWA 15-20; Start 01/25/17 at 06:30 Lorazepam (Ativan Inj) 2 mg Q15M PRN IV PUSH CIWA > 20; Start 01/25/17 at 06:30 Haloperidol Lactate (Haldol Inj) 2 mg Q15M PRN IM SEE LABEL COMMENTS; Start at 06:30 Pantoprazole Sodium (Protonix Inj) 40 mg Q24H IV PUSH Last administered on 01/25 09:15; Start 01/25/17 at 09:00 Paroxetine HCl (Paxil) 40 mg DAILY PO Last administered on 01/25/17 10:04; Start 01/25/17 at 10:00 Urinary Catheter: No Vascular Central Line Catheter: No A/P Problem List: (1) ETOH abuse ICD Code: F10.10 - Alcohol abuse, uncomplicated Status: Acute (2) Pancreatitis ICD Code: K85.90 - Acute pancreatitis without necrosis or infection, unspecified Status: Acute (3) Hyperglycemia ICD Code: R73.9 - Hyperglycemia, unspecified Status: Acute Assessment and Plan 46 y/o male with a history of alcohol abuse, pancreatitis, depression and Type 1 DM presented to the ED with complaints of epigastric pain, nausea and vomiting. Acute Pancreatitis, Lipase 2847, with associated nausea and vomiting -IVF for hydration -Pain management with IV Dilaudid -Clear liquids, advance diet as tolerated -Antiemetics as needed Alcohol abuse and Tobacco abuse, chronic -Encouraged to quit -CIWA protocol with thiamine and folate ordered -Seizure precautions Hyperglycemia, patient is a type 1 DM, likely elevated due to stress of vomiting , BS on yesterday's lab 315 -Accu checks ordered, if elevated will order SSI -Diabetic diet when able to eat -Labs pending DVT prophylaxis: SCDs GI prophylaxis: Protonix CONTINUE PAIN CONTROL AM LABS BOWEL REST Problem Qualifiers (1) Pancreatitis: Qualified Codes: K85.20 - Alcohol induced acute pancreatitis without necrosis or infection Phil Matthew DO Jan 25, 2017 10:32
[2017-01-25] MEDS ORDERED: DEXTROSE 50% IN WATER 50 ML VIAL(D50) IV PRN (10:45)
[2017-01-25] MEDS ORDERED: GLUCAGON 1 MG/ML VIAL OTHER PRN (10:45)
[2017-01-25 11:07] LABS: HDL CHOLESTEROL 103.3 MG/DL (40.0-60.0)
[2017-01-25] MEDS: MULTIVITAMIN INJ 10 ML, FOLIC ACID INJ 1 MG in SODIUM CHLORID 0.9% 500 ML INJ 500 ML IV SCH (12:16)
[2017-01-25] MEDS: INSULIN ASPART SUPPLEMENTAL SCALE SQ SCH ×3 (13:27→21:44)
[2017-01-25] MEDS: INSULIN DETEMIR 100 UNITS/ML VIAL SQ SCH (21:43)
[2017-01-26] VITALS (7 sets, daily range): BP systolic 140–178; BP diastolic 80–93; PULSE 52–98; RESP 17–20; TEMP 97.4–98.4; O2SAT 95–98
[2017-01-26] MEDS: HYDROmorphone HCL PF 1 MG/ML VIAL IV PUSH PRN ×5 (01:10→21:01)
[2017-01-26] MEDS: SODIUM CHLOR 0.9% 1000 ML INJ 1,000 ML IV SCH ×3 (02:25→22:25)
[2017-01-26] MEDS: INSULIN ASPART SUPPLEMENTAL SCALE SQ SCH ×4 (07:42→20:59)
[2017-01-26] MEDS: MULTIVITAMIN INJ 10 ML, FOLIC ACID INJ 1 MG in SODIUM CHLORID 0.9% 500 ML INJ 500 ML IV SCH (08:36)
[2017-01-26] MEDS: THIAMINE INJ 100 MG in SODIUM CHLORIDE 0.9% INJ 100 ML IV SCH (08:40)
[2017-01-26] MEDS: SODIUM CHLORIDE 0.9% FLUSH 10 ML FLUSH IV FLUSH SCH ×2 (09:00→20:56)
--- NOTE | 2017-01-26 09:59 | HHI.PR ---
Subjective Remarks 46 y/o male with a history of alcohol abuse, pancreatitis, depression and Type 1 DM presented to the ED with complaints of epigastic pain, nausea and vomiting. Patient was admitted yesterday and left AMA to go home and have a beer. He states that was a bad mistake and his pain worsened. He states the pain is a sharp 10/10 pain to his epigastric region, with associated nausea and vomiting. He states the pain is worse when he vomits, and the morphine only lasts an hour. He states he drinks about 10 beers a day and plans on quitting, he also states he gets the shakes if he does not drink. He denies any chest pain , sob, fever or chills. 01-25 and came back to the hospital after leaving AGAINST MEDICAL ADVICE and having some beers. Then came back because he had worsening abdominal pain and nausea and vomiting She is now asking for more pain medications Continue to monitor leaving AGAINST MEDICAL ADVICE again Discussed with patient and RN 01-26 patient still complains of abdominal pain He would like his diet advanced Labs have been drawn late await labs Patient still complaining of abdominal pain at this time States this does not happen when he does beer only happens when he does cheap vodka Objective Vitals Vital Signs Date Time Temp Pulse Resp B/P (MAP) Pulse Ox O2 Delivery O2 Flow Rate FiO2 01/26/17 07:19 97.5 98 20 155/86 (109) 95 01/26/17 06:30 18 01/26/17 04:54 98.3 70 18 140/80 (100) 98 01/26/17 01:27 98.2 67 18 146/83 (104) 97 01/25/17 21:30 98.0 78 18 187/88 (121) 95 01/25/17 16:10 97.6 82 18 171/81 (111) 94 01/25/17 12:37 80 01/25/17 11:41 98.6 83 20 166/78 (107) 98 I/O 01/25/17 01/25/17 01/25/17 01/26/17 01/26/17 01/26/17 07:00 15:00 23:00 07:00 15:00 23:00 Intake Total 720 ml 200 ml 200 ml Balance 720 ml 200 ml 200 ml Intake Oral 720 ml 200 ml 200 ml # Voids 5 # Bowel Movements 4 Result Diagram: 8/29/17 0616 01/25/17 0616 Other Results Laboratory Tests Test 01/25/17 06:16 01/26/17 08:44 White Blood Count 8.9 TH/MM3 Red Blood Count 4.49 MIL/MM3 Hemoglobin 15.1 GM/DL Hematocrit 43.9 % Mean Corpuscular Volume 97.9 FL Mean Corpuscular Hemoglobin 33.6 PG Mean Corpuscular Hemoglobin Concent 34.4 % Red Cell Distribution Width 14.5 % Platelet Count 168 TH/MM3 Mean Platelet Volume 9.3 FL Neutrophils (%) (Auto) 82.2 % Lymphocytes (%) (Auto) 8.2 % Monocytes (%) (Auto) 9.4 % Eosinophils (%) (Auto) 0.0 % Basophils (%) (Auto) 0.2 % Neutrophils # (Auto) 7.3 TH/MM3 Lymphocytes # (Auto) 0.7 TH/MM3 Monocytes # (Auto) 0.8 TH/MM3 Eosinophils # (Auto) 0.0 TH/MM3 Basophils # (Auto) 0.0 TH/MM3 CBC Comment DIFF FINAL Differential Comment Blood Urea Nitrogen 13 MG/DL Creatinine 0.65 MG/DL Random Glucose 229 MG/DL Total Protein 7.3 GM/DL Albumin 3.9 GM/DL Calcium Level 8.3 MG/DL Alkaline Phosphatase 98 U/L Aspartate Amino Transf (AST/SGOT) 38 U/L Alanine Aminotransferase (ALT/SGPT) 80 U/L Total Bilirubin 1.0 MG/DL Sodium Level 130 MEQ/L Potassium Level 4.5 MEQ/L Chloride Level 95 MEQ/L Carbon Dioxide Level 15.1 MEQ/L Anion Gap 20 MEQ/L Estimat Glomerular Filtration Rate 133 ML/MIN Triglycerides Level 101 MG/DL Cholesterol Level 225 MG/DL LDL Cholesterol 102 MG/DL HDL Cholesterol 103.3 MG/DL Cholesterol/HDL Ratio 2.17 RATIO Lipase 1198 U/L Objective Remarks GENERAL: This is a well-nourished, well-developed patient, in no apparent distress. SKIN: No rashes, ecchymoses or lesions. Cool and dry. HEAD: Atraumatic. Normocephalic. EYES: Pupils equal round and reactive. Extraocular muscles are grossly intact ENT: Nose without bleeding, purulent drainage or septal hematoma. Airway patent. Tongue is midline NECK: Trachea midline. No JVD or lymphadenopathy. Tongue is midline CARDIOVASCULAR: Regular rate and rhythm without murmurs, gallops, or rubs. S1 and S2 no S3 or S4 no heave or thrill RESPIRATORY: Clear to auscultation. Breath sounds equal bilaterally. No wheezes , rales, or rhonchi. GASTROINTESTINAL: Abdomen soft, epigastric tenderness, nondistended. Still having some epigastric tenderness MUSCULOSKELETAL: Extremities without clubbing, cyanosis, or edema. No joint tenderness, effusion, or edema noted. No calf tenderness. NEUROLOGICAL: Awake and alert. Motor and sensory grossly within normal limits. Normal speech. Insight and judgment are limited mood and behavior somewhat appropriate Medications and IVs Current Medications Morphine Sulfate (Morphine Inj) 4 mg ONCE ONCE IV PUSH Last administered on 20:47; Start 01/24/17 at 20:15; Stop 01/24/17 at 20:16; Status DC Ondansetron HCl (Zofran Inj) 4 mg ONCE ONCE IV PUSH Last administered on 20:47; Start 01/24/17 at 20:15; Stop 01/24/17 at 20:16; Status DC Sodium Chloride 1,000 ml @ 100 mls/hr Q10H IV Last administered on 01/26/17 02:25; Start 01/24/17 at 20:25 Sodium Chloride (NS Flush) 2 ml UNSCH PRN IV FLUSH FLUSH AFTER USING IV ACCESS ; Start 01/24/17 at 20:30 Sodium Chloride (NS Flush) 2 ml BID IV FLUSH Last administered on 01/24/17 20: 55; Start 01/24/17 at 21:00 Ondansetron HCl (Zofran Inj) 4 mg Q6H PRN IVP NAUSEA OR VOMITING Last administered on 01/25/17 02:23; Start 01/24/17 at 20:30 Naloxone HCl (Narcan Inj) 0.4 mg UNSCH PRN IV SEE LABEL COMMENTS; Start at 20:30 Morphine Sulfate (Morphine Inj) 2 mg Q3H PRN IV PUSH pain >5 Last administered on 01/25/17 03:19; Start 01/24/17 at 20:30; Stop 01/25/17 at 06:16; Status DC Hydromorphone HCl (Dilaudid Pf Inj) 0.5 mg Q4H PRN IV PUSH PAIN >5 Last administered on 01/26/17 05:39; Start 01/25/17 at 06:15 Multivitamins 10 ml/Folic Acid 1 mg/Sodium Chloride 510.2 ml @ 125 mls/hr Q24H IV Last administered on 01/26/17 08:36; Start 01/25/17 at 07:00; Stop 01/30/17 at 06:59 Thiamine HCl 100 mg/Sodium Chloride 101 ml @ 100 mls/hr Q24H IV Last administered on 01/26/17 08:40; Start 01/25/17 at 07:00; Stop 01/28/17 at 06:59 Flumazenil (Romazicon Inj) 0.2 mg Q1M PRN IV PUSH SEE LABEL COMMENTS; Start at 06:30 Lorazepam (Ativan Inj) 1 mg Q4H PRN IV PUSH CIWA 8 - 10; Start 01/25/17 at 06: 30 Lorazepam (Ativan Inj) 2 mg Q2H PRN IV PUSH CIWA 11-14; Start 01/25/17 at 06:30 Lorazepam (Ativan Inj) 2 mg Q1H PRN IV PUSH CIWA 15-20; Start 01/25/17 at 06:30 Lorazepam (Ativan Inj) 2 mg Q15M PRN IV PUSH CIWA > 20; Start 01/25/17 at 06:30 Haloperidol Lactate (Haldol Inj) 2 mg Q15M PRN IM SEE LABEL COMMENTS; Start at 06:30 Pantoprazole Sodium (Protonix Inj) 40 mg Q24H IV PUSH Last administered on 01/25 09:15; Start 01/25/17 at 09:00 Paroxetine HCl (Paxil) 40 mg DAILY PO Last administered on 01/25/17 10:04; Start 01/25/17 at 10:00 Folic Acid (Folate) 1 mg DAILY PO ; Start 01/30/17 at 09:00 Insulin Detemir (Levemir Inj) 10 units BID SQ Last administered on 01/25/17 21 :43; Start 01/25/17 at 21:00 Dextrose (D50w (Vial) Inj) 50 ml UNSCH PRN IV HYPOGLYCEMIA-SEE COMMENTS; Start 01/25/17 at 10:45 Glucagon (Glucagon Inj) 1 mg UNSCH PRN OTHER HYPOGLYCEMIA-SEE COMMENTS; Start 01/25/17 at 10:45 Insulin Aspart (NovoLOG SUPPLEMENTAL SCALE) 1 ACHS SLIDING SCALE SQ Last administered on 01/26/17t 07:42; Start 01/25/17 at 11:30 Urinary Catheter: No Vascular Central Line Catheter: No A/P Problem List: (1) ETOH abuse ICD Code: F10.10 - Alcohol abuse, uncomplicated Status: Acute (2) Pancreatitis ICD Code: K85.90 - Acute pancreatitis without necrosis or infection, unspecified Status: Acute (3) Hyperglycemia ICD Code: R73.9 - Hyperglycemia, unspecified Status: Acute Assessment and Plan 46 y/o male with a history of alcohol abuse, pancreatitis, depression and Type 1 DM presented to the ED with complaints of epigastric pain, nausea and vomiting. Acute Pancreatitis, Lipase 2847, with associated nausea and vomiting -IVF for hydration -Pain management with IV Dilaudid -Clear liquids, advance diet as tolerated -Antiemetics as needed Continue on clear liquid diet await labs Alcohol abuse and Tobacco abuse, chronic -Encouraged to quit -CIWA protocol with thiamine and folate ordered -Seizure precautions Hyperglycemia, patient is a type 1 DM, likely elevated due to stress of vomiting , BS on yesterday's lab 315 -Accu checks ordered, if elevated will order SSI -Diabetic diet when able to eat -Labs pending Await labs today Continue on clear liquid diet and pain medications as needed DVT prophylaxis: SCDs GI prophylaxis: Protonix CONTINUE PAIN CONTROL AM LABS BOWEL REST Problem Qualifiers (1) Pancreatitis: Qualified Codes: K85.20 - Alcohol induced acute pancreatitis without necrosis or infection Phil Matthew DO Jan 26, 2017 09:59
[2017-01-26 10:12] LABS: ALT (GPT) 56 U/L (12-78); AMYLASE 42 U/L (25-115); ANION GAP 10 MEQ/L (5-15); AST (GOT) 30 U/L (15-37); BICARBONATE 24.8 MEQ/L (21.0-32.0); BLOOD UREA NITROGEN 12 MG/DL (7-18); CHLORIDE 98 MEQ/L (98-107); GLOMERULAR FILTRATION RATE 181 ML/MIN (>89); MAGNESIUM 2.2 MG/DL (1.5-2.5); POTASSIUM 3.5 MEQ/L (3.5-5.1); SODIUM (NA) 133 MEQ/L (136-145)
[2017-01-26 10:16] LABS: ALKALINE PHOSPHATASE 87 U/L (45-117); FREE T4 1.36 NG/DL (0.76-1.46); TOTAL BILIRUBIN ADULT 0.8 MG/DL (0.2-1.0)
[2017-01-26 10:17] LABS: AUTOMATED NEUTROPHIL # 4.8 TH/MM3 (1.8-7.7); BASOPHIL % 0.4 % (0.0-2.0); EOSINOPHIL % 0.5 % (0.0-4.0); HEMATOCRIT 41.6 % (39.0-51.0); HEMO FLAGS DIFF FINAL; LYMPH % 17.4 % (9.0-44.0); LYMPHOCYTE # 1.1 TH/MM3 (1.0-4.8); MEAN CELL VOLUME 96.3 FL (80.0-100.0); MEAN CORPUSCULAR HEMOGLOBIN 33.1 PG (27.0-34.0); MEAN CORPUSCULAR HGB CONC 34.4 % (32.0-36.0); MONO % 8.2 % (0.0-8.0); NEUT % 73.5 % (16.0-70.0); PLATELET COUNT 146 TH/MM3 (150-450); RED BLOOD COUNT 4.33 MIL/MM3 (4.50-5.90); RED CELL DISTRIBUTION WIDTH 14.3 % (11.6-17.2); WHITE BLOOD COUNT 6.6 TH/MM3 (4.0-11.0)
[2017-01-26] MEDS: PARoxetine HCL 20 MG TAB PO SCH (10:40)
[2017-01-26] MEDS: PANTOPRAZOLE SODIUM 40 MG VIAL IV PUSH SCH (10:41)
[2017-01-26] MEDS: INSULIN DETEMIR 100 UNITS/ML VIAL SQ SCH ×2 (10:51→21:00)
[2017-01-26 11:20] LABS: HEMOGLOBIN A1a 1.3 %; HEMOGLOBIN A1b 1.9 %; HEMOGLOBIN Ao 81.4 %; HEMOGLOBIN LA1C 2.3 %; HEMOGLOBIN P3 4.1 %
[2017-01-27] VITALS (9 sets, daily range): BP systolic 145–179; BP diastolic 64–99; PULSE 47–99; RESP 16–18; TEMP 98–98.3; O2SAT 93–98
[2017-01-27] MEDS: HYDROmorphone HCL PF 1 MG/ML VIAL IV PUSH PRN ×3 (01:04→09:42)
[2017-01-27] MEDS: SODIUM CHLOR 0.9% 1000 ML INJ 1,000 ML IV SCH (01:08)
[2017-01-27] MEDS: THIAMINE INJ 100 MG in SODIUM CHLORIDE 0.9% INJ 100 ML IV SCH (08:54)
[2017-01-27] MEDS: MULTIVITAMIN INJ 10 ML, FOLIC ACID INJ 1 MG in SODIUM CHLORID 0.9% 500 ML INJ 500 ML IV SCH (08:54)
[2017-01-27] MEDS: SODIUM CHLORIDE 0.9% FLUSH 10 ML FLUSH IV FLUSH SCH (09:00)
[2017-01-27] MEDS ORDERED: OMEP40CA2 PO (09:50)
--- NOTE | 2017-01-27 09:59 | HHI.DS ---
Discharge Summary Admission Date Jan 24, 2017 at 20:25 Discharge Date: Jan 27, 2017 Admitting Diagnosis pancreatitis (1) ETOH abuse ICD Code: F10.10 - Alcohol abuse, uncomplicated Diagnosis: Secondary Status: Chronic (2) Pancreatitis ICD Code: K85.90 - Acute pancreatitis without necrosis or infection, unspecified Diagnosis: Principal Status: Acute (3) DM (diabetes mellitus) ICD Code: E11.9 - Type 2 diabetes mellitus without complications Diagnosis: Secondary Status: Chronic Procedures None Brief History - From Admission 46 y/o male with a history of alcohol abuse, pancreatitis, depression and Type 1 DM presented to the ED with complaints of epigastic pain, nausea and vomiting. Patient was admitted yesterday and left AMA to go home and have a beer. He states that was a bad mistake and his pain worsened. He states the pain is a sharp 10/10 pain to his epigastric region, with associated nausea and vomiting. He states the pain is worse when he vomits, and the morphine only lasts an hour. He states he drinks about 10 beers a day and plans on quitting, he also states he gets the shakes if he does not drink. He denies any chest pain , sob, fever or chills. CBC/BMP: 01/26/17 0844 01/26/17 0844 Significant Findings Laboratory Tests Test 01/25/17 06:16 01/26/17 08:44 Red Blood Count 4.49 MIL/MM3 (4.50-5.90) 4.33 MIL/MM3 (4.50-5.90) Neutrophils (%) (Auto) 82.2 % (16.0-70.0) 73.5 % (16.0-70.0) Lymphocytes (%) (Auto) 8.2 % (9.0-44.0) Monocytes (%) (Auto) 9.4 % (0.0-8.0) 8.2 % (0.0-8.0) Lymphocytes # (Auto) 0.7 TH/MM3 (1.0-4.8) Random Glucose 229 MG/DL (74-106) 154 MG/DL (74-106) Calcium Level 8.3 MG/DL (8.5-10.1) 8.3 MG/DL (8.5-10.1) Aspartate Amino Transf (AST/SGOT) 38 U/L (15-37) Alanine Aminotransferase (ALT/SGPT) 80 U/L (12-78) Sodium Level 130 MEQ/L (136-145) 133 MEQ/L (136-145) Chloride Level 95 MEQ/L (98-107) Carbon Dioxide Level 15.1 MEQ/L (21.0-32.0) Anion Gap 20 MEQ/L (5-15) Cholesterol Level 225 MG/DL (120-200) LDL Cholesterol 102 MG/DL (0-99) HDL Cholesterol 103.3 MG/DL (40.0-60.0) Lipase 1198 U/L (73-393) Platelet Count 146 TH/MM3 (150-450) Creatinine 0.50 MG/DL (0.60-1.30) Phosphorus Level 1.1 MG/DL (2.5-4.9) Hemoglobin A1c 8.6 % (4.3-6.0) PE at Discharge GENERAL: This is a well-nourished, well-developed patient, in no apparent distress. SKIN: No rashes, ecchymoses or lesions. Cool and dry. HEAD: Atraumatic. Normocephalic. EYES: Pupils equal round and reactive. Extraocular muscles are grossly intact ENT: Nose without bleeding, purulent drainage or septal hematoma. Airway patent. Tongue is midline NECK: Trachea midline. No JVD or lymphadenopathy. Tongue is midline CARDIOVASCULAR: Regular rate and rhythm without murmurs, gallops, or rubs. S1 and S2 no S3 or S4 no heave or thrill RESPIRATORY: Clear to auscultation. Breath sounds equal bilaterally. No wheezes , rales, or rhonchi. GASTROINTESTINAL: Abdomen soft, epigastric tenderness, nondistended. Still having some epigastric tenderness MUSCULOSKELETAL: Extremities without clubbing, cyanosis, or edema. No joint tenderness, effusion, or edema noted. No calf tenderness. NEUROLOGICAL: Awake and alert. Motor and sensory grossly within normal limits. Normal speech. Insight and judgment are limited mood and behavior somewhat appropriate Pt update on day of discharge Diet was advanced to full this morning. The patient states he is happy to have real food and he is happy to be able to keep it down with no vomiting. He denies any nausea. He does still have some abdominal discomfort but it has improved from previous. This is his fourth bout of pancreatitis. He states he knows is related to alcohol. He states that he does want to quit, but alcohol is more of a thing to do when he is bored. He states that here and he knows all the outpatient resources available and declines case management assistance. He does have a history of diabetes and takes Novolin 70/30, 15 in the AM and 20 in the p.m. Hospital Course 46 y/o male with a history of alcohol abuse, pancreatitis, depression and Type 1 DM presented to the ED with complaints of epigastric pain, nausea and vomiting. Acute Pancreatitis, Lipase 2847 and trended down to normal limits 149. Associated nausea, vomiting, and pain improved. Triglycerides within normal limits. -Tolerating heart healthy diabetic diet, continue low fat bland diet and advance as tolerated -Continue PPI -Encouraged absence from alcohol and follow-up for better diabetes control Alcohol abuse and Tobacco abuse, chronic. No signs of withdrawal. LFTs now within normal limits. -Counseled on cessation Type 1 diabetes mellitus, blood glucose is currently controlled. Hemoglobin A1c 8.3. -Continue home Novolin 70/30, 15 in the a.m. and 20 in the PM -Encouraged outpatient PCP follow-up Pt Condition on Discharge: Stable Discharge Disposition: Discharge Home Discharge Time: > 30 minutes Discharge Instructions DIET: Follow Instructions for: Heart Healthy Diet, Diabetic Diet Additional Diet Instructions: [place] low-fat diet for a few days and advance as tolerated Activities you can perform: Regular-No Restrictions Follow up Referrals: PCP Follow-up - 1 Week New Medications: Omeprazole (Omeprazole) 40 Mg Cap 40 MG PO DAILY for Reflux, #30 CAP 0 Refills Continued Medications: Paroxetine (Paxil) 30 Mg Tab 40 MG PO DAILY, #30 TAB 0 Refills Dwain Suarez Jan 27, 2017 09:59
[2017-01-27] MEDS: INSULIN ASPART SUPPLEMENTAL SCALE SQ SCH ×2 (10:00→13:04)
[2017-01-27] MEDS: PARoxetine HCL 20 MG TAB PO SCH (10:02)
[2017-01-27] MEDS: PANTOPRAZOLE SODIUM 40 MG VIAL IV PUSH SCH (10:04)
[2017-01-27] MEDS ORDERED: INSULIN HUMAN NPH/R 70/30 1,000 UNITS/10 ML VIAL SQ SCH (17:00)
[2017-01-28] MEDS ORDERED: INSULIN HUMAN NPH/R 70/30 1,000 UNITS/10 ML VIAL SQ SCH (08:00)
[2017-01-30] MEDS ORDERED: FOLIC ACID 1 MG TAB PO SCH (09:00)
== END 2017-01-27 14:45 | disposition home or self-care (01) ==
LOC: NEPD 18:02 → NEDA 20:25 → NEPHCDU 21:35
PROVIDERS: ADMIT Family Medicine; ATTEND Family Medicine
DX: K85.20 Alcohol induced acute pancreatitis without necrosis or infection (principal); F10.10 Alcohol abuse, uncomplicated; E10.65 Type 1 diabetes mellitus with hyperglycemia; F20.9 Schizophrenia, unspecified; Z72.0 Tobacco use; Z79.4 Long term (current) use of insulin
CPT/HCPCS: 76937; 80053; 80061; 82150; 82948; 83036; 83690; 83735; 84100; 84439; 84443; 85025; 96361; 96365; 96366; 96367; 96368; 96372; 96375; 96376; 99285; C9113; G0378; J1170; J1815; J2270; J2405; J3411; J7030; J7040